=== PATIENT | male | born 1960 | race Caucasian/White ===

== ENCOUNTER 2023-06-06 13:16 | Emergency (ER) | payer MEDICARE, BC ==
[~2023-06-06] VITALS: Ht 170.2 cm; Wt 61.7 kg
[2023-06-06] MEDS ORDERED: CEFTRIAXONE 1 G in IV DEXTROSE 5% 50 ML IV ONE (13:30)
[2023-06-06] MEDS ORDERED: IV NORMAL SALINE 1000 ML BAG IV ONE ×2 (13:30→18:00)
[2023-06-06] MEDS ORDERED: METRONIDAZOLE 500 MG/NS 100ML 100 ML IV ONE ×2 (13:30→13:41)
[2023-06-06] MEDS ORDERED: METFORMIN (13:34)
[2023-06-06] MEDS ORDERED: PREDNISONE (13:34)
[2023-06-06] MEDS ORDERED: ALFUZOSIN (13:34)
[2023-06-06] MEDS ORDERED: FOLIC ACID (13:34)
[2023-06-06] MEDS ORDERED: COMPAZINE (13:34)
[2023-06-06] MEDS ORDERED: VALCYTE (13:34)
[2023-06-06] MEDS ORDERED: CEFTRIAXONE /D5W 50ML IVPB **ER PYXIS IV ONE (13:41)
[2023-06-06 14:07] LABS: BASOPHILS % (AUTO) 0.5 % (0.0-2.0); EOSINOPHILS % (AUTO) 1.5 % (0.0-7.0); LYMPHOCYTES # (AUTO) 0.5 K/uL (0.8-4.8); LYMPHOCYTES % (AUTO) 83.4 % (20.5-51.5); MEAN CORPUSCULAR HEMOGLOBIN 34.9 uug (23.8-33.4); MEAN CORPUSCULAR HGB CONC 34 g/dL (32.5-36.3); MEAN CORPUSCULAR VOLUME 103.6 fL (73.0-96.2); MONOCYTES % (AUTO) 5.3 % (0.0-11.0); NEUTROPHILS # (AUTO) 0.1 K/uL (1.8-8.9); NEUTROPHILS % (AUTO) 9.3 % (38.5-71.5); RED CELL DISTRIBUTION WIDTH 25.9 % (12.1-16.2)
[2023-06-06 14:15] LABS: CALCIUM 8.3 mg/dL (8.5-10.1); CARBON DIOXIDE 19 mmol/L (21-32); CHLORIDE 99 mmol/L (98-107); CREATININE 1.1 mg/dL (0.6-1.3); GLUCOSE 221 mg/dL (74-106); HEMOGLOBIN 5.4 g/dL (12.5-16.3); POTASSIUM 4.1 mmol/L (3.5-5.1); RED BLOOD CELL COUNT(AUTO) 1.55 MIL/uL (4.06-5.63); SODIUM SERUM 133 mmol/L (136-145); UREA NITROGEN, BLOOD 20 mg/dL (7-18); WHITE BLOOD COUNT (AUTO) 0.6 K/uL (3.6-10.2)
[2023-06-06 14:16] LABS: DIFFERENTIAL COMMENT 1; PLATELET COUNT (AUTO) 8 K/uL (152-348)
[2023-06-06 14:17] LABS: LACTIC ACID 4.5 mmol/L (0.4-2.0)
[2023-06-06 14:20] LABS: ALANINE AMINOTRANSFERASE 21 U/L (16-63); ALBUMIN 2.2 g/dL (3.4-5.0); ALKALINE PHOSPHATASE 318 U/L (50-136); ASPARTATE AMINOTRANSFERASE 8 U/L (15-37); BILIRUBIN,DIRECT 1.1 mg/dL (0.0-0.2); BILIRUBIN,TOTAL 1.2 mg/dL (0.2-1.0); NT-PRO BNP 762 pg/mL (0-125); TOTAL PROTEIN, SERUM 5.8 g/dL (6.4-8.2)
[2023-06-06 15:04] LABS: EOSINOPHILS % (MANUAL) 1 % (0-8); LYMPHOCYTES % (MANUAL) 83 % (20-40); MONOCYTES % (MANUAL) 6 % (2-10); NEUTROPHILS % (MANUAL) 10 % (42-75)
[2023-06-06 15:05] LABS: ANISOCYTOSIS 3+; PLATELET ESTIMATE DECREASED
[2023-06-06] MEDS ORDERED: AZITHROMYCIN IV 500 MG in IV DEXTROSE 5% 250 ML IV ONE (15:15)
[2023-06-06] MEDS ORDERED: BIOT5TAB PO (15:29)
[2023-06-06] MEDS ORDERED: METO25TA6 PO (15:29)
[2023-06-06] MEDS ORDERED: CYCL5.5D3 EACHEYE (15:29)
[2023-06-06] MEDS ORDERED: INSU3INS9 SQ ×2 (15:29)
[2023-06-06] MEDS ORDERED: ONDA8TAB65 PO (15:29)
[2023-06-06] MEDS ORDERED: METF-442 PO (15:29)
[2023-06-06] MEDS ORDERED: OXYC5TAB3 PO (15:29)
[2023-06-06] MEDS ORDERED: PANT20TA17 PO (15:29)
[2023-06-06] MEDS ORDERED: TRAZ-182 PO (15:29)
[2023-06-06] MEDS ORDERED: ZINC50TA69 PO (15:29)
[2023-06-06] MEDS ORDERED: ATOV750O4 PO (15:29)
[2023-06-06] MEDS ORDERED: DOCU100C36 PO (15:29)
[2023-06-06] MEDS ORDERED: MAGN296S70 PO (15:29)
[2023-06-06] MEDS ORDERED: EMPA25TA PO (15:29)
[2023-06-06] MEDS ORDERED: DEXA0.5E PO (15:29)
[2023-06-06] MEDS ORDERED: VALG450T4 PO (15:29)
[2023-06-06] MEDS ORDERED: FOLI1TAB27 PO (15:29)
[2023-06-06] MEDS ORDERED: INSU100V39 SQ (15:29)
[2023-06-06] MEDS ORDERED: FLUC200T8 PO (15:29)
[2023-06-06] MEDS ORDERED: ACYC-108 PO (15:29)
[2023-06-06] MEDS ORDERED: PROC10TA13 PO (15:29)
[2023-06-06] MEDS ORDERED: FINA5TAB11 PO (15:29)
[2023-06-06 16:06] LABS: *BLOOD, URINE 1+ (NEGATIVE); *CLARITY,URINE CLEAR (CLEAR); *COLOR,URINE YELLOW (YELLOW); *KETONES,URINE NEGATIVE (NEGATIVE); *PROTEIN,URINE 2+ (NEGATIVE); *UROBILINOGEN,URINE 0.2 E.U./dl (NORMAL); LEUKOCYTE ESTERASE ,URINE NEGATIVE (NEGATIVE); NITRITE, URINE NEGATIVE (NEGATIVE)
[2023-06-06 16:10] LABS: *BILIRUBIN,URIN 1+ (NEGATIVE); UGLUCOSE 3+ (NEGATIVE)
[2023-06-06 16:30] LABS: WBC,URINE 0-3 /HPF (0-3)
[2023-06-06 16:31] LABS: BACTERIA,URINE FEW /HPF (NONE SEEN)
[2023-06-06 16:32] LABS: SQUAMOUS EPITHELIAL CELL,UR MODERATE /HPF (NONE SEEN)
[2023-06-06] MEDS ORDERED: CEFTAZIDIME 2 G in IV DEXTROSE 5% 100 ML IV ONE (17:45)
[2023-06-06] MEDS ORDERED: CEFTAZIDIME 1 G VIAL ONE ×2 (17:53→17:54)
[2023-06-06] MEDS ORDERED: ACETAMINOPHEN 325 MG TABLET ONE (19:55)
[2023-06-06] MEDS ORDERED: ACETAMINOPHEN 650 MG/20.3 ML LIQUID UDC PO ONE (20:00)
[2023-06-06 20:24] VITALS: O2SAT 98
== END 2023-06-06 22:26 | disposition short-term general hospital (02) ==
LOC: ER 13:16
DX: K52.9 Noninfective gastroenteritis and colitis, unspecified (principal); R65.21 Severe sepsis with septic shock; D64.9 Anemia, unspecified; D61.818 Other pancytopenia; R91.8 Other nonspecific abnormal finding of lung field; R51.9 Headache, unspecified; R07.89 Other chest pain; E11.9 Type 2 diabetes mellitus without complications; Z79.4 Long term (current) use of insulin; Z79.84 Long term (current) use of oral hypoglycemic drugs; Z79.899 Other long term (current) drug therapy; Z20.822 Contact with and (suspected) exposure to COVID-19
CPT/HCPCS: 80076; 80048; 81001; 83880; 85007; 85025; 85730; 86850; 86900; 86901; 86920; 87426; 87040 ×2; 84484; 93005; 71045; 70450; 74176; 99291; 96365; 96366; 96367; 96368; 83605 ×2; P9016 ×2; P9035; J0713 ×3; J0696; J3490; J7050; J7040 ×4; 70030-TC; A4663